=== PATIENT | female | born 1930 ===

== ENCOUNTER 2016-04-23 20:34 | Inpatient (IN) | payer MEDICARE, OTHER ==
--- NOTE | ~2016-04-23 | DS ---
Discharge Summary [facility] [address] [place]. [address] NAME: MCKENZIE STRONG : 32 STATUS : DIS IN PAT#: [id number] AGE: 85 ADM/REG DATE : 04/23/16 MR#: [id number] REPORT SERV DATE: 05/12/16 DICTATED BY: DEMARCUS BLACK II DATE: 05/11/16 REPORT STATUS : Draft TRANSCRIBED BY: ZAFAR DATE: 05/11/16 Data Collection from hospitalization DISCHARGE DIAGNOSES: 1. 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 2. Severe cervicothoracic myelopathy. 3. Hypertension. 4. Diabetes. 5. History of stroke. 6. Overactive bladder. 7. History of kidney stones. 8. History of head injury in the remote past. 9. Heart disease. 10.Sinusitis. 11.Degenerative disk disease. 12.History of two heart attacks. 13.Anemia. 14.Legally blind. 15.Macular degeneration. CONSULTATIONS: Josey Monte M.D. PROCEDURES: Excision of large intradural extramedullary tumor at C6-7, C7-T1; posterolateral arthrodesis, C6-7, C7-T1, and T1-T2; posterior segmental instrumentation, C6-7, C7-T1, T1- T2; use of microscope; use of stereotactic spinal imaging; posterior laminectomy, C6-7 and C7-T1, on 04/26/2016. PATHOLOGY: Bone and soft tissue, posterior cervical spine excision-cartilage, bone, and skeletal muscle. 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 DISCHARGE MEDICATIONS: Tylenol 1300 mg every eight hours as needed, vitamin D 5000 units daily, Celexa 20 mg daily, Aggrenox one capsule twice a day, Krill oil one capsule daily, Mag-Ox 400 mg twice a day, Namenda 10 mg twice a day, Centrum tablets one tablet daily, Zantac 150 mg twice a day, Janumet XR one tablet with supper as instructed, Ultram 50 mg every six to eight hours as needed. CONDITION AT DISCHARGE: Stable. DISPOSITION: The patient was discharged home to be followed by home health care on an 1800- calorie diabetic diet with activities as instructed. She would follow up with me three weeks following discharge. HOSPITAL COURSE: This is an 85-year-old female who had been a resident at an assisted living facility in [place], [place] for quite some time and had progressively developed some difficulty with balance and coordination over time that was just thought be age-related. She had completely lost the ability to stand and walk. She had been worked up for various issues. She has a history of stroke, but that was ruled out and eventually, she has been Discharge Summary [address] [place]. [address] NAME: MCKENZIE STRONG : 32 STATUS : DIS IN PAT#: [id number] AGE: 85 ADM/REG DATE : 04/23/16 MR#: [id number] REPORT SERV DATE: 05/12/16 DICTATED BY: DEMARCUS BLACK II DATE: 05/11/16 REPORT STATUS : Draft TRANSCRIBED BY: ZAFAR DATE: 05/11/16 admitted at [facility] in [place], [place], for further evaluation, and they realize that she has some cervical cord compression. She does have a history of cervical meningioma that was seen on some imaging from a stroke in 2007, but it was thought to be slow growing and would not necessarily cause a problem. She was transferred here from [place] for potential consideration of surgery and further evaluation. Upon admission, the MRI of the cervical spine from [facility] was going to be reviewed, and we would discuss surgical treatment options. The patient and her daughter were willing to proceed with surgery despite the risks at her age. The following day, she was seen by Dr. Josey Monte for pre-surgical evaluation of the patient's chronic medical problems and surgical risk evaluation as well as medical management of blood pressure and blood sugar after surgery. Creatinine level was abnormal on the day of admission at 1.38. Her white count was 15.2. Chest x-ray and urinalysis were going to be checked. It was evaluated, she had a urinary tract infection. There was no cough. A pre- surgical chest x-ray would be checked. She currently had no evidence of chest pain. She does have a history of coronary artery disease. EKG and troponins would be checked. Aggrenox was held. This would definitely be a major surgery. Risks were discussed with the patient and her family. Her blood pressure was in the normal range at this time. Blood pressure medication would be provided as needed. IV fluids were adjusted. On the day of admission, she had prerenal azotemia with mild acute kidney injury. She was receiving IV fluids. BMP was going to be rechecked. Her diabetes was under control at this time. On 04/26/2016, her temperature was 99.1. Sliding scale insulin was increased to level 3. She had been taken to the operating room where she underwent the above-mentioned procedure. She tolerated this well. There were no complications. On postop day #1, she was stable. She was alert and cooperative. She was evaluated by Physical Therapy over the next couple of days. We encouraged her to mobilize as tolerated. She had been evaluated by Physical Therapy and was participating. Occupational Therapy also evaluated the patient. Discharge planning was performed. Aggrenox had been placed on hold perioperatively. Sliding scale insulin continued. Her oral medications were going to be resumed. On 04/29/2016, her oral intake was better. She was participating well with Physical Therapy. Metformin was going to be resumed. Discharge planning was performed. On 05/01/2016, she still complained of the expected amount of postop pain. This was relieved with Tylenol. She was eager to go home. Discharge instructions were given. Due to her improved and stable condition, she was discharged home with the above-stated instructions. Information collected by: Casi Gonzáles I submit the above information as my discharge summary. ZAK/ZAFAR Demarcus Black II, M.D. / [id number] CC: Discharge Summary [address] [address] NAME: MCKENZIE STRONG : 32 STATUS : DIS IN PAT#: [id number] AGE: 85 ADM/REG DATE : 04/23/16 MR#: [id number] REPORT SERV DATE: 05/12/16 DICTATED BY: DEMARCUS BLACK II DATE: 05/11/16 REPORT STATUS : Draft TRANSCRIBED BY: ABDIRASHIDL DATE: 05/11/16 Saud Faye IIymick
--- NOTE | ~2016-04-23 | HP ---
History And Physical [facility] [address] [place]. [address] NAME: MCKENZIE PETERSON : 32 STATUS : ADM IN [facility]#: [id number] AGE: 85 ADM/REG DATE : 04/23/16 MR#: [id number] REPORT SERV DATE: 04/24/16 DICTATED BY: DEMARCUS BLACK II DATE: 04/24/16 REPORT STATUS : Draft TRANSCRIBED BY: MODZena DATE: 04/24/16 DATE OF ADMISSION: 04/23/2016 HISTORY OF PRESENT ILLNESS: The patient, Ms. Peterson is an 85-year-old female patient. She has been a resident at an assisted living facility in [place], [place] for some time now and has progressively developed some difficulty with balance and coordination over time that was just thought to be age related, but on 03/22, she completely lost the ability to stand and walk. She has been worked up for various issues. She has a history of strokes, but that was ruled out and eventually, she was admitted at [facility] in [place], [place] for further evaluation and they realized that she does have some cervical cord compression. She has a known history of a cervical meningioma that was seen on some imaging from a stroke in 2007, but it was thought to be slow growing and would not necessarily cause a problem. She was transferred here yesterday from [place] for further evaluation and potential consideration for surgery. PAST MEDICAL HISTORY: Includes arthritis, high blood pressure, kidney stones, overactive bladder, diabetes, stroke x2, a head injury in 1970, heart disease, sinusitis, back pain with degenerative disk disease, two heart attacks, anemia, and she is legally blind with limited vision due to the strokes. She also has a macular degeneration. PAST SURGICAL HISTORY: She had an appendectomy in 11/2015, a laparoscopic knee surgery, coronary angioplasty, gallbladder removal, cataract surgery, surgery on second and great toes, a bladder cystoscopy. FAMILY HISTORY: High blood pressure, anemia, stroke, arthritis, diabetes, epilepsy. SOCIAL HISTORY: She is retired from the [email or web address] and a current resident at [facility]. Denies ever having used tobacco or alcohol. REVIEW OF SYSTEMS: Anxiety, nervousness, vision problems, chest pain, shortness of breath, swelling in the legs, constipation, muscle pain, joint pain, headache, dizziness, memory loss especially when taking certain medications, difficulty walking, loss of balance and coordination, stiffness, tremor, back pain, neck pain, weakness, numbness, tingling, frequent urination with incontinence of urine, she is continent of stool, and fatigue. HOME MEDICATIONS: Tylenol p.r.n., vitamin D, cinnamon bark oral supplement, Celexa 20 mg daily, Aggrenox 200/25 one twice a day, iron, krill oil, Zestril 20 mg daily, Mag-Ox, Namenda 10 mg twice a day, multivitamin, Protonix 40 mg daily, Zantac 150 mg twice a day, Tramadol p.r.n., Janumet 50/500 daily, some type of vision supplement. PHYSICAL EXAMINATION: GENERAL: She is alert and oriented x3, not overly sedated. She does not appear to be in any acute distress. RESPIRATORY: She is on room air, nonlabored breathing. ABDOMEN: Soft. Tender reportedly due to insulin injections. History And Physical [address] [address] NAME: MCKENZIE PETERSON : 32 STATUS : ADM IN [facility]#: [id number] AGE: 85 ADM/REG DATE : 04/23/16 MR#: [id number] REPORT SERV DATE: 04/24/16 DICTATED BY: DEMARCUS BLACK II DATE: 04/24/16 REPORT STATUS : Draft TRANSCRIBED BY: ZAFAR DATE: 04/24/16 MUSCULOSKELETAL: The cervical spine is tender to palpation, and she is fixed in forward flexion to some degree. NEURO: She is definitely hyperreflexic in the upper and lower extremities with a positive Rabago's bilaterally. No significant weakness identified. Just some generalized overall weakness, but difficulty with coordination. : She is wearing a diaper. ASSESSMENT: Progressive neurological weakness, cervical cord compression with a cervical meningioma. PLAN: Will be to download the cervical spine MRI from 04/[address] [facility] for review. Discussed surgical treatment options, and Ms. Peterson and her daughter are willing to proceed with surgery despite the risks at her age. Dr. Black will review images and discuss with family later today. DICTATED BY: Dr. Sofia Berrios's nurse practitioner. JOHN/ZAFAR Demarcus Black II, M.D. / [id number] CC: Saud Faye II, Catherine
--- NOTE | ~2016-04-23 | CN ---
Consultation Report [facility] [address] [place]. [address] NAME: MCKENZIE STRONG : 32 STATUS : ADM IN [facility]#: [id number] AGE: 85 ADM/REG DATE : 04/23/16 MR#: [id number] REPORT SERV DATE: 04/24/16 DICTATED BY: KELLIE GONZALEZ DATE: 04/24/16 REPORT STATUS : Draft TRANSCRIBED BY: MODL DATE: 04/24/16 CONSULTATION DATE OF CONSULTATION: 04/24/2016 REASON FOR CONSULT: Presurgical evaluation of the patient's chronic medical problems and surgical risk evaluation, as well as medical management of blood pressure and blood sugar after surgery. HISTORY OF PRESENT ILLNESS: The patient is an 85-year-old female who basically is admitted by Dr. Black because she was found to have a mass on her neck and she has a cervical meningioma, which was affecting her ability to walk, so they are planning to do surgery, and I am consulted for her chronic medical problems, as well as presurgical evaluation. PAST MEDICAL HISTORY: Includes hypertension, chronic kidney stones, overactive bladder, diabetes, strokes x2, history of coronary artery disease, according to the patient's daughter it was nonobstructing coronary artery disease. In 2002, she had arteriogram and they did not put any stents. The patient's daughter denies any history of congestive heart failure. She is legally blind, and she had two strokes in the past, one on the right and one on the left side. History of macular degeneration. History of meningioma on her neck in the past, now growing. The patient's daughter reported that the patient had difficulty walking and she was hospitalized in the [facility] in [place] before, went to assisted living, then was diagnosed after it at Neurological office that she has a meningioma and was sent here to Dr. Black. Currently, the patient denies any chest pain, no shortness of breath, no abdominal pain, no fever, no rash, and no headaches. She also has past medical history of dementia. REVIEW OF SYSTEMS: All 14-point review of systems done and negative except what is stated in the history of present illness. PAST SURGICAL HISTORY: Includes appendectomy, laparoscopic knee surgery, cholecystectomy, coronary arteriogram without any stent placement, history of cataract surgery, surgery on the great toe, and history of bladder cystoscopy. FAMILY HISTORY: Positive for high blood pressure, anemia, stroke, arthritis, diabetes, and history of seizures in the grandmother. SOCIAL HISTORY: She is retired. She works in the [employer]. She is a resident [facility]. No alcohol. No recreational drug use. No tobacco use. HOME MEDICATIONS: Include Tylenol 1300 p.o. q.8 hours p.r.n., vitamin D 5000 units daily, cinnamon daily, Celexa 20 mg a day, Aggrenox 200/25 b.i.d., iron daily, Krill oil one Consultation Report [facility] [address] [place]. [address] NAME: MCKENZIE STRONG : 32 STATUS : ADM IN [facility]#: [id number] AGE: 85 ADM/REG DATE : 04/23/16 MR#: [id number] REPORT SERV DATE: 04/24/16 DICTATED BY: KELLIE GONZALEZ DATE: 04/24/16 REPORT STATUS : Draft TRANSCRIBED BY: ZAFAR DATE: 04/24/16 capsule daily, lisinopril 20 mg daily, magnesium oxide 400 b.i.d., Namenda 10 mg twice a day, multivitamins daily, Protonix 40 daily, ranitidine 150 daily, tramadol 50 mg p.o. q.6 hours p.r.n., Janumet 50/500 daily, Visine eyedrops. PHYSICAL EXAMINATION: GENERAL: Well-nourished, well-developed female, not in acute distress, resting quietly. VITAL SIGNS: Blood pressure is 135/63, heart rate 67, temperature 98.9, respiratory rate 14, and oxygen saturation 97% on room air. HEENT: Head atraumatic, normocephalic. Conjunctivae clear. Pupils are equal and reactive to light and accommodation. Extraocular muscles are intact. NECK: Supple. Trachea is midline. No supraclavicular or cervical lymphadenopathy. LUNGS: Clear to auscultation bilaterally. Normal respiratory effort. CARDIOVASCULAR SYSTEM: Regular rate and rhythm. Point of maximal impulse not displaced. ABDOMEN: Soft, nontender, nondistended. Positive normoactive bowel sounds. EXTREMITIES: No clubbing, cyanosis, or edema. PSYCHIATRIC: Normal mood and affect. SKIN: Normal color and turgor. LABORATORY RESULTS: I do not have any laboratory results ordered for today. I am going to order them. Yesterday, she had abnormal creatinine 1.38 and BUN was 40. Her potassium was 4.2, and her sodium was 138, yesterday blood sugar was 293. Yesterday, she had leukocytosis of 15.2, hemoglobin 9.8, hematocrit 30.9, and a platelet count 164. ASSESSMENT AND PLAN: This is an 85-year-old female, who is admitted by Dr. Black for neck mass/meningioma. I am consulted for medical management and for presurgical evaluation. 1. She had leukocytosis yesterday, but she is afebrile. We will check her chest x-ray, and urinalysis to evaluate if she has urinary tract infection. She does not have any cough, so we will just check a chest x-ray, presurgical. 2. History of coronary artery disease, currently no any evidence of chest pain. The patient used to walk with a walker. Now, she is not ambulatory, but she did not have any shortness of breath before, and she did not have any stents in her heart, and we will check her EKG and troponin. 3. History of strokes before. The patient is on Aggrenox, which is now held for possible surgery. Definitely, this is a major surgery, and there is always a possibility of stroke, especially with a history of strokes, and there is also a possibility of heart attack in this elderly people with a history of strokes and heart attacks. This was discussed with the patient's family and with the patient's daughter, and they realize that surgery may cause some strokes and heart attacks, and I think the patient's risk is probably moderate taking into consideration her history of strokes before as well as history of heart attacks. We will check her EKG. We will check troponin and BNP for further evaluation of her surgical risk but for now, it is moderate. 4. Hypertension. We give her as needed medications if the blood pressure will become elevated, now in normal range. 5. Yesterday, she had prerenal azotemia, mild acute kidney injury, and she is on IV fluids. We will recheck her BMP today. We will check her sodium level and creatinine Consultation Report [facility] [address] [place]. [address] NAME: MCKENZIE STRONG : 32 STATUS : ADM IN PAT#: [id number] AGE: 85 ADM/REG DATE : 04/23/16 MR#: [id number] REPORT SERV DATE: 04/24/16 DICTATED BY: KELLIE GONZALEZ DATE: 04/24/16 REPORT STATUS : Draft TRANSCRIBED BY: MODL DATE: 04/24/16 level. If necessary, we will adjust her IV fluids. 6. We will also order old records from Dr. Magallon. MG/ZAFAR Kellie Gonzalez M.D. / [id number] CC: Saud Faye II, CATHERINE
--- NOTE | ~2016-04-23 | OP ---
Record Of Operation [facility] [address] [place]. [address] NAME: MCKENZIE STRONG : 32 STATUS : ADM IN PAT#: [id number] AGE: 85 ADM/REG DATE : 04/23/16 MR#: [id number] REPORT SERV DATE: 04/28/16 DICTATED BY: DEMARCUS BLACK II DATE: 04/28/16 REPORT STATUS : Draft TRANSCRIBED BY: MODZena DATE: 04/28/16 DATE OF PROCEDURE: 04/26/2016 PREOPERATIVE DIAGNOSES: 1. Large intradural benign tumor (meningioma), at C6-7, C7-T1. 2. Severe cervicothoracic myelopathy. POSTOPERATIVE DIAGNOSES: 1. Large intradural benign tumor (meningioma), at C6-7, C7-T1. 2. Severe cervicothoracic myelopathy. PROCEDURES: 1. Excision of large intradural extramedullary tumor at C6-7, C7-T1. 2. Posterolateral arthrodesis, C6-7, C7-T1, T1-T2. 3. Posterior segmental instrumentation, C6-7, C7-T1, T1-T2. 4. Use of the microscope. 5. Use of stereotactic spinal imaging. 6. Posterior laminectomy C6-7, C7-T1. SURGEON: Demarcus Black M.D. FLUIDS: 1600 mL LR. ESTIMATED BLOOD LOSS: 100 mL. DRAINS: One drain. COMPLICATIONS: No complications. ANTIBIOTIC: Preoperatively. NEUROMONITORING: Stable throughout the procedure (excellent SSEPs, but poor motor evoked potentials prior to incision. The SSEPs were unchanged throughout the surgery). PREOPERATIVE HISTORY: This is a very friendly, 85-year-old female, who was transferred from [place], [place] with a large intradural mass. Dr. Prieto called me requesting a potential transfer to [facility] for this patient. Apparently, his friends with the patient and patient's family, he gave me the overview of her as well as the fact that she had been previously walking until approximately 3 weeks prior when she became unable to walk. She was reportedly moving her extremities well, but simply could not stand and mobilize from a balance perspective. She sounded myelopathic. I was happy to accept her as a patient and then evaluate the films and consider the pros and cons of surgery with the family. The patient's wound again had been previously functional and walking. The family tells me she had been diagnosed with a meningioma in 2007. The daughter and I discussed it extensively and overall discussed with her the fact that she may not improve despite Record Of Operation [address] [place]. [address] NAME: MCKENZIE STRONG : 32 STATUS : ADM IN PAT#: [id number] AGE: 85 ADM/REG DATE : 04/23/16 MR#: [id number] REPORT SERV DATE: 04/28/16 DICTATED BY: DEMARCUS BLACK II DATE: 04/28/16 REPORT STATUS : Draft TRANSCRIBED BY: MODL DATE: 04/28/16 surgical intervention given her severe functional decline in the last 3 weeks. Her motor function was normal in the upper extremities. She was able to feed herself. The daughter was very interested in trying surgery even though it may not help. She overall thought that the family was of the opinion to try and if she did not improve, at least they will know that we had tried everything possible. The patient also agreed with this approach. After informed consent was obtained, the patient was brought to the operating room at her request and general anesthesia achieved. She was placed in the prone position following Bullock-Wells tongs application. The patient was then turned to the prone position, and her back was prepped and draped in a sterile fashion including the cervicothoracic junction. The incision was now made after standard prepping and draping. Dissection was carried down to C6 and carried out to T2. The subperiosteal exposure was completed. Next, the intraoperative CT scan was completed to allow use of stereotactic guidance and visualization. Next, the lateral mass screws were placed at C6 and C7. Pedicle screws were placed into T1 and T2. The bone quality was very reasonable. At this point, the laminectomy was performed. Interestingly, the stereotactic guidance did show some calcification of the meningioma. The laminectomy was then performed at C6-7 and C7-T1. At this point with the spinal cord well visualized, we were able to palpate the tumor. Next, the microscope was brought into place and under microscopic visualization, the midline durotomy was performed. The retraction sutures were placed bilaterally. At this point, a very large tumor was identified and from the spinal cord. The capsule of the tumor was then penetrated, followed by removal of the large extramedullary intradural mass. We were able to remove the majority of the tumor with forceps and pituitary rongeurs. The mass essentially occupied the entire right two-thirds of the canal, yet appeared to originate from the dorsolateral area, but occupied anterior and posterior portions of the canal. At this point, I was reasonably pleased with the excision of the large intradural extramedullary mass. Hemostasis was achieved. The area was now irrigated. Next, we then performed a watertight closure with 4-0 Nurolon suture. Next, the rods were then well assembled bilaterally and final tightening performed. The repeat CT scan confirmed acceptable placement of the implants. A decortication was now performed at C6, C7, T1, and T2 and local autograft and allograft substitute placed along the decorticated surfaces. A deep drain was placed followed by standard closure, and the patient was then extubated and transferred to PACU in stable condition. JOHN/ZAFAR Demarcus Black Record Of Operation [facility] [address] [facility] [place]. [address] NAME: MCKENZIE STRONG : 32 STATUS : ADM IN PAT#: [id number] AGE: 85 ADM/REG DATE : 04/23/16 MR#: [id number] REPORT SERV DATE: 04/28/16 DICTATED BY: DEMARCUS BLACK II DATE: 04/28/16 REPORT STATUS : Draft TRANSCRIBED BY: ZAFAR DATE: 04/28/16 Saud POTTER / [id number] CC: Saud Faye II, MD
[2016-04-23 22:10] LABS: BASOPHILS 0.1 %; BASOPHILS ABSOLUTE 0.01 10/3/uL (0.0-0.16); EOSINOPHILS 0.3 %; EOSINOPHILS ABSOLUTE 0.05 10/3/uL (0.0-0.53); HEMATOCRIT 30.9 % (36.0-48.0); HEMOGLOBIN 9.8 g/dL (12.0-16.0); IMMATURE GRANULOCYTES ABSOLUTE 0.15 10/3/uL (0.0-0.11); LYMPHOCYTES 18.5 %; LYMPHOCYTES ABSOLUTE 2.82 10/3/uL (0.67-4.30); MANUAL DIFF NO %; MEAN CORPUS HGB CONC 31.7 g/dL (32.0-36.0); MEAN CORPUSCULAR HEMOGLOB 25.9 pg (26.0-34.0); MEAN CORPUSCULAR VOLUME 81.5 fL (80-100); MEAN PLATELET VOLUME 12.1 fL (9.2-13.0); MONOCYTES ABSOLUTE 1.06 10/3/uL (0.21-1.20); NEUTROPHILS 73.1 %; NEUTROPHILS ABSOLUTE 11.13 10/3/uL (2.02-8.40); PLATELET COUNT 164 10/3/uL (150-400); RBC DISTRIBUTION WIDTH 15.9 % (12.0-16.0); RED CELL COUNT 3.79 10/6/uL (4.0-5.6); WHITE BLOOD CELLS 15.2 10/3/uL (4.5-10.5)
[2016-04-23 22:28] LABS: A/G RATIO 0.8 (0.7-1.9); ALBUMIN 2.7 G/DL (3.5-5.0); ALKALINE PHOSPHATASE 88 U/L (45-117); BUN (BLOOD UREA NITROGEN) 40 MG/DL (6-23); CALCIUM, SERUM 8.3 MG/DL (8.5-10.4); CHLORIDE, SERUM 103 MMOL/L (96-112); CO2 (CARBON DIOXIDE) 22 MMOL/L (24-34); CREATININE 1.38 MG/DL (0.55-1.02); GFR AFRICAN AMERICAN 41 ML/MIN (>=60); GFR NON AFRICAN AMERICAN 35 ML/MIN (>=60); GLOBULIN 3.5 G/DL (2.5-4.1); GLUCOSE, SERUM 293 MG/DL (60-99); POTASSIUM, SERUM 4.2 MMOL/L (3.5-5.3); SGPT(ALT) 33 U/L (5-65); SODIUM, SERUM 138 MMOL/L (135-148); TOTAL BILIRUBIN 0.3 MG/DL (0-1.2); TOTAL PROTEIN 6.2 G/DL (6.0-8.5)
[2016-04-23 22:29] LABS: SGOT(AST) 28 U/L (5-40)
[2016-04-23] MEDS ORDERED: AGGRENOX PO (22:46)
[2016-04-23] MEDS ORDERED: CENTRUM PO (22:46)
[2016-04-23] MEDS ORDERED: CELEXA20 PO (22:47)
[2016-04-23] MEDS ORDERED: CINNAMONPO PO ×2 (22:47)
[2016-04-23] MEDS ORDERED: EZFE 200200 MG PO (22:47)
[2016-04-23] MEDS ORDERED: JANUMET PO (22:48)
[2016-04-23] MEDS ORDERED: NAMENDA10 MG PO (22:49)
[2016-04-23] MEDS ORDERED: KRILLOIL PO (22:49)
[2016-04-23] MEDS ORDERED: MAGOX4 PO (22:49)
[2016-04-23] MEDS ORDERED: ZANTAC150 MG PO (22:49)
[2016-04-23] MEDS ORDERED: ZESTRIL20 MG PO (22:49)
[2016-04-23] MEDS ORDERED: PROTONIX PO (22:49)
[2016-04-23] MEDS ORDERED: LUTEIN PO (22:50)
[2016-04-23] MEDS ORDERED: 8 HOUR650 MG PO (22:50)
[2016-04-23] MEDS ORDERED: D 5000 PO (22:50)
[2016-04-23] MEDS ORDERED: [UNRECOGNIZED DRUG - OTHER] PO (22:50)
[2016-04-23] MEDS ORDERED: ULTRAM50 PO (22:51)
[2016-04-24 11:22] LABS: BASOPHILS 0 %; EOSINOPHILS 0.5 %; EOSINOPHILS ABSOLUTE 0.05 10/3/uL (0.0-0.53); HEMATOCRIT 28.4 % (36.0-48.0); HEMOGLOBIN 8.9 g/dL (12.0-16.0); IMMATURE GRANULOCYTES 1.2 %; IMMATURE GRANULOCYTES ABSOLUTE 0.13 10/3/uL (0.0-0.11); LYMPHOCYTES 21.3 %; LYMPHOCYTES ABSOLUTE 2.32 10/3/uL (0.67-4.30); MEAN CORPUS HGB CONC 31.3 g/dL (32.0-36.0); MEAN CORPUSCULAR HEMOGLOB 25.7 pg (26.0-34.0); MEAN CORPUSCULAR VOLUME 82.1 fL (80-100); MEAN PLATELET VOLUME 12.8 fL (9.2-13.0); MONOCYTES 8.4 %; MONOCYTES ABSOLUTE 0.91 10/3/uL (0.21-1.20); NEUTROPHILS 68.6 %; NEUTROPHILS ABSOLUTE 7.46 10/3/uL (2.02-8.40); PLATELET COUNT 140 10/3/uL (150-400); RBC DISTRIBUTION WIDTH 15.8 % (12.0-16.0); RED CELL COUNT 3.46 10/6/uL (4.0-5.6); WHITE BLOOD CELLS 10.9 10/3/uL (4.5-10.5)
[2016-04-24 11:26] LABS: MANUAL DIFF NO %
[2016-04-24 11:39] LABS: BUN (BLOOD UREA NITROGEN) 39 MG/DL (6-23); CHLORIDE, SERUM 103 MMOL/L (96-112); CO2 (CARBON DIOXIDE) 26 MMOL/L (24-34); CREATININE 1.14 MG/DL (0.55-1.02); GFR AFRICAN AMERICAN 51 ML/MIN (>=60); GFR NON AFRICAN AMERICAN 44 ML/MIN (>=60); GLUCOSE, SERUM 232 MG/DL (60-99); POTASSIUM, SERUM 4.3 MMOL/L (3.5-5.3); SODIUM, SERUM 137 MMOL/L (135-148); TROPONIN I <0.02 NG/ML (<0.05)
[2016-04-24 17:05] LABS: ASCORBIC ACID (UR NOT ORDER) NEG (NEG); BILIRUBIN, URINE NEGATIVE (NEG); KETONE, URINE NEGATIVE (NEG); LEUKOCYTE ESTERASE(NOT OR TRACE (NEG); WBC (NOT ORDERED) (RFLEX) 3 (0-5)
[2016-04-25 06:10] LABS: CALCIUM, SERUM 8.3 MG/DL (8.5-10.4); CHLORIDE, SERUM 107 MMOL/L (96-112); CO2 (CARBON DIOXIDE) 24 MMOL/L (24-34); CREATININE 1.07 MG/DL (0.55-1.02); GFR AFRICAN AMERICAN 56 ML/MIN (>=60); GFR NON AFRICAN AMERICAN 48 ML/MIN (>=60); POTASSIUM, SERUM 4.4 MMOL/L (3.5-5.3); SODIUM, SERUM 140 MMOL/L (135-148)
[2016-04-25 06:11] LABS: BUN (BLOOD UREA NITROGEN) 35 MG/DL (6-23); GLUCOSE, SERUM 147 MG/DL (60-99)
[2016-04-26 05:21] LABS: BASOPHILS 0.1 %; BASOPHILS ABSOLUTE 0.01 10/3/uL (0.0-0.16); EOSINOPHILS 0.6 %; EOSINOPHILS ABSOLUTE 0.07 10/3/uL (0.0-0.53); HEMATOCRIT 26.6 % (36.0-48.0); HEMOGLOBIN 8.3 g/dL (12.0-16.0); IMMATURE GRANULOCYTES 0.7 %; IMMATURE GRANULOCYTES ABSOLUTE 0.08 10/3/uL (0.0-0.11); LYMPHOCYTES 20.1 %; LYMPHOCYTES ABSOLUTE 2.34 10/3/uL (0.67-4.30); MEAN CORPUS HGB CONC 31.2 g/dL (32.0-36.0); MEAN CORPUSCULAR HEMOGLOB 25.8 pg (26.0-34.0); MEAN CORPUSCULAR VOLUME 82.6 fL (80-100); MONOCYTES ABSOLUTE 1.05 10/3/uL (0.21-1.20); NEUTROPHILS 69.5 %; NEUTROPHILS ABSOLUTE 8.11 10/3/uL (2.02-8.40); PLATELET COUNT 125 10/3/uL (150-400); RBC DISTRIBUTION WIDTH 15.8 % (12.0-16.0); RED CELL COUNT 3.22 10/6/uL (4.0-5.6); WHITE BLOOD CELLS 11.7 10/3/uL (4.5-10.5)
[2016-04-26 05:23] LABS: MANUAL DIFF NO %
[2016-04-26 05:26] LABS: CALCIUM, SERUM 8.2 MG/DL (8.5-10.4); CHLORIDE, SERUM 106 MMOL/L (96-112); CO2 (CARBON DIOXIDE) 26 MMOL/L (24-34); GFR AFRICAN AMERICAN 48 ML/MIN (>=60); GFR NON AFRICAN AMERICAN 42 ML/MIN (>=60); POTASSIUM, SERUM 4.6 MMOL/L (3.5-5.3); SODIUM, SERUM 139 MMOL/L (135-148)
[2016-04-26 05:27] LABS: BUN (BLOOD UREA NITROGEN) 31 MG/DL (6-23); GLUCOSE, SERUM 233 MG/DL (60-99)
[2016-04-26 18:15] LABS: HEMATOCRIT 26.4 % (36.0-48.0); HEMOGLOBIN 8.3 g/dL (12.0-16.0)
[2016-04-27 05:01] LABS: CHLORIDE, SERUM 99 MMOL/L (96-112); CO2 (CARBON DIOXIDE) 23 MMOL/L (24-34); CREATININE 1.24 MG/DL (0.55-1.02); GFR AFRICAN AMERICAN 47 ML/MIN (>=60); GFR NON AFRICAN AMERICAN 40 ML/MIN (>=60); GLUCOSE, SERUM 275 MG/DL (60-99); POTASSIUM, SERUM 5.3 MMOL/L (3.5-5.3); SODIUM, SERUM 134 MMOL/L (135-148)
[2016-04-27 05:04] LABS: BUN (BLOOD UREA NITROGEN) 23 MG/DL (6-23)
[2016-04-27 05:48] LABS: BASOPHILS 0.1 %; BASOPHILS ABSOLUTE 0.01 10/3/uL (0.0-0.16); EOSINOPHILS 0 %; HEMOGLOBIN 7.8 g/dL (12.0-16.0); IMMATURE GRANULOCYTES 0.6 %; LYMPHOCYTES 5.4 %; LYMPHOCYTES ABSOLUTE 0.93 10/3/uL (0.67-4.30); MEAN CORPUS HGB CONC 31.2 g/dL (32.0-36.0); MEAN CORPUSCULAR HEMOGLOB 25.2 pg (26.0-34.0); MEAN CORPUSCULAR VOLUME 80.9 fL (80-100); MEAN PLATELET VOLUME 11.6 fL (9.2-13.0); MONOCYTES 6.1 %; MONOCYTES ABSOLUTE 1.05 10/3/uL (0.21-1.20); NEUTROPHILS 87.8 %; NEUTROPHILS ABSOLUTE 15.08 10/3/uL (2.02-8.40); PLATELET COUNT 113 10/3/uL (150-400); RBC DISTRIBUTION WIDTH 15.6 % (12.0-16.0); RED CELL COUNT 3.09 10/6/uL (4.0-5.6)
[2016-04-27 05:49] LABS: MANUAL DIFF NO %; WHITE BLOOD CELLS 17.2 10/3/uL (4.5-10.5)
[2016-04-27 06:43] LABS: PLATELET ESTIMATE SLT DEC (ADEQUATE)
[2016-04-27 06:46] LABS: POLYCHROMASIA 1+ (2-5/OIF) (0-1/OIF)
[2016-04-28 05:03] LABS: BASOPHILS 0.1 %; BASOPHILS ABSOLUTE 0.01 10/3/uL (0.0-0.16); EOSINOPHILS 0.7 %; EOSINOPHILS ABSOLUTE 0.09 10/3/uL (0.0-0.53); HEMATOCRIT 23.5 % (36.0-48.0); HEMOGLOBIN 7.3 g/dL (12.0-16.0); IMMATURE GRANULOCYTES 1.1 %; IMMATURE GRANULOCYTES ABSOLUTE 0.13 10/3/uL (0.0-0.11); LYMPHOCYTES 21.6 %; LYMPHOCYTES ABSOLUTE 2.65 10/3/uL (0.67-4.30); MEAN CORPUS HGB CONC 31.1 g/dL (32.0-36.0); MEAN CORPUSCULAR HEMOGLOB 26.3 pg (26.0-34.0); MEAN PLATELET VOLUME 12.4 fL (9.2-13.0); MONOCYTES 11.2 %; MONOCYTES ABSOLUTE 1.37 10/3/uL (0.21-1.20); NEUTROPHILS 65.3 %; PLATELET COUNT 120 10/3/uL (150-400); RED CELL COUNT 2.78 10/6/uL (4.0-5.6); WHITE BLOOD CELLS 12.3 10/3/uL (4.5-10.5)
[2016-04-28 05:05] LABS: MANUAL DIFF NO %; MEAN CORPUSCULAR VOLUME 84.5 fL (80-100)
[2016-04-28 05:12] LABS: BUN (BLOOD UREA NITROGEN) 20 MG/DL (6-23); CALCIUM, SERUM 8.4 MG/DL (8.5-10.4); CHLORIDE, SERUM 104 MMOL/L (96-112); CO2 (CARBON DIOXIDE) 27 MMOL/L (24-34); GFR AFRICAN AMERICAN 60 ML/MIN (>=60); GFR NON AFRICAN AMERICAN 52 ML/MIN (>=60); GLUCOSE, SERUM 126 MG/DL (60-99); POTASSIUM, SERUM 4.4 MMOL/L (3.5-5.3); SODIUM, SERUM 141 MMOL/L (135-148)
[2016-04-28 13:33] LABS: % IRON SAT 11 % (20-50); FERRITIN 44 NG/ML (8-252); IRON BINDING CAPACITY 281 MCG/DL (225-410); IRON, SERUM 30 MCG/DL (35-150)
[2016-04-29 05:14] LABS: BASOPHILS 0.2 %; BASOPHILS ABSOLUTE 0.02 10/3/uL (0.0-0.16); EOSINOPHILS 0.9 %; EOSINOPHILS ABSOLUTE 0.09 10/3/uL (0.0-0.53); IMMATURE GRANULOCYTES 0.8 %; IMMATURE GRANULOCYTES ABSOLUTE 0.08 10/3/uL (0.0-0.11); LYMPHOCYTES 15.9 %; LYMPHOCYTES ABSOLUTE 1.63 10/3/uL (0.67-4.30); MEAN CORPUS HGB CONC 31.3 g/dL (32.0-36.0); MEAN CORPUSCULAR HEMOGLOB 26.1 pg (26.0-34.0); MEAN CORPUSCULAR VOLUME 83.4 fL (80-100); MEAN PLATELET VOLUME 11.6 fL (9.2-13.0); MONOCYTES 8.8 %; NEUTROPHILS 73.4 %; NEUTROPHILS ABSOLUTE 7.53 10/3/uL (2.02-8.40); PLATELET COUNT 115 10/3/uL (150-400); RBC DISTRIBUTION WIDTH 15.9 % (12.0-16.0); WHITE BLOOD CELLS 10.3 10/3/uL (4.5-10.5)
[2016-04-29 05:16] LABS: HEMATOCRIT 28.1 % (36.0-48.0); HEMOGLOBIN 8.8 g/dL (12.0-16.0); MANUAL DIFF NO %; RED CELL COUNT 3.37 10/6/uL (4.0-5.6)
[2016-04-29 05:23] LABS: BUN (BLOOD UREA NITROGEN) 27 MG/DL (6-23); CALCIUM, SERUM 8.5 MG/DL (8.5-10.4); CHLORIDE, SERUM 102 MMOL/L (96-112); CO2 (CARBON DIOXIDE) 28 MMOL/L (24-34); GFR AFRICAN AMERICAN 60 ML/MIN (>=60); GFR NON AFRICAN AMERICAN 52 ML/MIN (>=60); GLUCOSE, SERUM 183 MG/DL (60-99); POTASSIUM, SERUM 4.4 MMOL/L (3.5-5.3); SODIUM, SERUM 138 MMOL/L (135-148)
[2016-05-01] MEDS ORDERED: JANUMET XR 50-1 EACH PO (14:45)
== END 2016-05-01 17:07 | disposition home or self-care (01) | DRG 460 ==
LOC: 3SO 20:34
PROVIDERS: Hospitalist; Internal Medicine; Orthopaedic Surgery
PROC: 0RG10Z1 (ICD-10-PCS; 2016-04-26)
PROC: 0RG40Z1 (ICD-10-PCS; 2016-04-26)
PROC: 4A11X4G Monitoring of Peripheral Nervous Electrical Activity, Intraoperative, External Approach (ICD-10-PCS; 2016-04-26)
PROC: 00BW0ZZ Excision of Cervical Spinal Cord, Open Approach (ICD-10-PCS; principal; 2016-04-26 12:45)
PROC: 0RG60Z1 (ICD-10-PCS; 2016-04-26 12:45)
PROC: 00BX0ZZ Excision of Thoracic Spinal Cord, Open Approach (ICD-10-PCS; 2016-04-26 12:45)
PROC: 30233N1 Transfusion of Nonautologous Red Blood Cells into Peripheral Vein, Percutaneous Approach (ICD-10-PCS; 2016-04-28)
DX: M50.020 Cervical disc disorder with myelopathy, mid-cervical region, unspecified level (principal); N17.9 Acute kidney failure, unspecified; E11.9 Type 2 diabetes mellitus without complications; I10 Essential (primary) hypertension; D32.1 Benign neoplasm of spinal meninges
CPT/HCPCS: 36415; 71010; 72040; 80048; 80053; 81001; 82728; 82962; 83036; 83540; 83550; 83735; 83880; 84484; 85014; 85018; 85025; 86850; 86900; 86901; 86920; 87641; 88304; 88307; 88311; 88341; 88342; 93005; 97110-GO; 97110-GP; 97162-GP; 97166-GO; 97530-GP; A9270-GY; C1713; G8978-CM-GP; G8979-CL-GP; G8987-CM-GO; G8988-CL-GO; J0360; J0690; J1644; J2250; J2370; J2405; J2710; J3010; J3370; P9016